=== PATIENT | female | born 1990 ===

== ENCOUNTER 2017-11-15 01:35 | Emergency (ER) | payer SELFPAY ==
[2017-11-15 01:40] VITALS: BMI 32.9
[2017-11-15] MEDS ORDERED: Sodium Chloride 0.9% 1,000 ML IV ONE (01:40)
--- NOTE | 2017-11-15 01:40 | C.PDOC ---
History Of Present Illness Pt woke up eith severe midepigastric pain. Sharp stabbing, non radiating pain. No f/c/n/v. No trauma or urinary symptoms Time Seen by Provider: 11/15/17 01:39 History Per: Patient, Family History/Exam Limitations: no limitations Onset/Duration Of Symptoms: Hrs Current Symptoms Are (Timing): Still Present Context: Other Severity: Severe Pain Scale Rating Of: 8 Location Of Pain/Discomfort: Epigastric Radiation Of Pain To:: None Quality Of Discomfort: Sharp, "Pain" Associated Symptoms: denies: Fever, Chills, Nausea Exacerbating Factors: None Alleviating Factors: None Last Bowel Movement: Yesterday Recent travel outside of the [place]: No Additional History Per: Family Abnormal Vaginal Bleeding: No Past Medical History Reviewed: Historical Data, Nursing Documentation, Vital Signs Vital Signs: Last Vital Signs Temp 97.9 F 11/15/17 01:55 Pulse 65 11/15/17 04:39 Resp 18 11/15/17 04:39 BP 114/78 11/15/17 04:39 Pulse Ox 98 11/15/17 04:39 Surgical History: - [facility] Procedures EXTRACTION OF POC, LOW CERVICAL, OPEN APPROACH (07/28/16) INTRODUCE OF OTH THERAP SUBST INTO FEM REPROD, VIA OPENING (07/28/16) Family History: States: No Known Family Hx - Social History Hx Alcohol Use: Yes Hx Substance Use: No - Immunization History Hx Tetanus Toxoid Vaccination: No Hx Influenza Vaccination: No Hx Pneumococcal Vaccination: No Review Of Systems Constitutional: Negative for: Fever, Chills Eyes: Negative for: Vision Change ENT: Negative for: Throat Pain Cardiovascular: Negative for: Chest Pain Respiratory: Negative for: Shortness of Breath Gastrointestinal: Positive for: Abdominal Pain. Negative for: Nausea, Vomiting Genitourinary: Negative for: Dysuria Musculoskeletal: Negative for: Back Pain Skin: Negative for: Rash Neurological: Negative for: Weakness Psych: Negative for: Anxiety Physical Exam - Physical Exam Appears: In Acute Distress Skin: Warm, Dry Head: Normacephalic Eye(s): bilateral: Normal Inspection Nose: Normal Oral Mucosa: Moist Neck: Supple Chest: Symmetrical Cardiovascular: Rhythm Regular Respiratory: No Rales, No Rhonchi, No Wheezing Gastrointestinal/Abdominal: Soft, Tenderness (MID EPIGASTRIC), Distention, Guarding (voluntary) Back: Normal Inspection, No CVA Tenderness Extremity: Normal ROM Extremity: Bilateral: Atraumatic Neurological/Psych: Oriented x3 Gait: Steady ED Course And Treatment - Laboratory Results Result Diagrams: 11/15/17 01:57 11/15/17 01:57 Pulse Ox Interpretation: Normal Disposition Counseled Patient/Family Regarding: Studies Performed, Diagnosis - Disposition Disposition Time: 01:40 Condition: FAIR - Clinical Impression Clinical Impression: Abdominal pain, Cholecystitis Physician Patient Turnover Patient Signed Over To: Jesus Martinez Handoff Comments: pending US, re-eval and dispositioni
[2017-11-15] MEDS ORDERED: Morphine 4 MG/ML VIAL ONE (01:46)
[2017-11-15] MEDS ORDERED: Sodium Chloride 0.9% 1,000 ML ONE (01:47)
[2017-11-15 02:01] LABS: BASO # 0.1 K/uL (0.0-0.2); BASO % 0.5 % (0.0-2.0); EOS # 0.2 K/uL (0.0-0.7); EOS % 1.4 % (0.0-4.0); HEMOGLOBIN 13.4 g/dL (11.0-16.0); LYMPH # 4.3 K/uL (1.0-4.3); LYMPH % 38.9 % (20.0-40.0); MEAN CELL VOLUME 82.5 fL (81.0-99.0); MEAN CORPUSCULAR HEMOGLOBIN 27.4 pg (27.0-31.0); MEAN CORPUSCULAR HGB CONC 33.2 g/dL (33.0-37.0); MEAN PLATELET VOLUME 8.2 fL (7.2-11.7); MONO # 0.8 K/uL (0.0-0.8); MONO % 7.3 % (0.0-10.0); NEUT # 5.7 K/uL (1.8-7.0); NEUT % 51.9 % (50.0-75.0); RBC 4.88 Mil/uL (3.80-5.20); RED CELL DISTRIBUTION WIDTH 13.5 % (11.5-14.5)
[2017-11-15 02:08] LABS: PROTHROMBIN TIME 11.7 SECONDS (9.7-12.2)
[2017-11-15 02:19] LABS: ALB/GLOB RATIO 1.2 (1.0-2.1); ALBUMIN 4.2 g/dL (3.5-5.0); ALT/SGPT 24 U/L (9-52); AST/SGOT 24 U/L (14-36); BLOOD UREA NITROGEN 12 mg/dL (7-17); CALCIUM 9.1 mg/dl (8.6-10.4); GFR AFRICAN-AMERICAN > 60; GFR NON-AFRICAN AMERICAN > 60; LIPASE 81 U/L (23-300)
[2017-11-15 02:51] LABS: HCG,QUALITATIVE URINE NEGATIVE (NEGATIVE)
[2017-11-15 03:22] LABS: URINE BILIRUBIN NEGATIVE (NEGATIVE); URINE BLOOD NEGATIVE (NEGATIVE); URINE CLARITY Hazy (Clear); URINE COLOR YELLOW (YELLOW); URINE GLUCOSE (UA) NEGATIVE (Normal); URINE PROTEIN NEGATIVE (NEGATIVE)
[2017-11-15 03:23] LABS: SQUAMOUS EPITHIAL 5 /hpf (0-5); URINE BACTERIA RARE (<OCC); URINE LEUKOCYTE ESTERASE 1+ Leu/uL (Negative)
[2017-11-15] MEDS ORDERED: Iodixanol 320 MG/ML 100 ML BOTTLE IV ONE (03:36)
[2017-11-15] MEDS ORDERED: Potassium Chloride 10 mEq ER Tab PO STA (04:51)
--- NOTE | 2017-11-15 04:55 | CT ---
EXAM: CT Abdomen and Pelvis With Intravenous Contrast CLINICAL HISTORY: 27 years old, female; Pain; Abdominal pain and other: Mid epigastric pain TECHNIQUE: Axial computed tomography images of the abdomen and pelvis with intravenous contrast. All CT scans at this facility use one or more dose reduction techniques, viz.: automated exposure control; ma/kV adjustment per patient size (including targeted exams where dose is matched to indication; i.e. head); or iterative reconstruction technique. Coronal and sagittal reformatted images were created and reviewed. CONTRAST: 100 mL of [id number] administered intravenously. COMPARISON: No relevant prior studies available. FINDINGS: Lung bases: Minimal atelectasis. ABDOMEN: Liver: Unremarkable. No mass. Gallbladder and bile ducts: Gallstones. Borderline prominence of common bile duct. Pancreas: No ductal dilation. No mass. Spleen: No splenomegaly. Adrenals: No mass. Kidneys and ureters: No mass. No hydronephrosis. Stomach and bowel: No definite mural thickening. No obstruction. PELVIS: Appendix: Normal caliber. No inflammation. Bladder: Unremarkable. Reproductive: Unremarkable as visualized. ABDOMEN and PELVIS: Intraperitoneal space: No significant fluid collection. No free air. Bones/joints: No acute fracture. Soft tissues: Tiny umbilical hernia containing fat. Vasculature: Unremarkable. No aneurysm. Lymph nodes: No pathologically enlarged lymph nodes. IMPRESSION: 1. Cholelithiasis with borderline ductal dilatation. Suggest ultrasound. 2. Incidental/non-acute findings are described above.
[2017-11-15] MEDS ORDERED: Potassium Chloride 20 mEq ER Tab PO ONE (04:58)
[2017-11-15 06:34] VITALS: O2SAT 99
--- NOTE | 2017-11-15 08:42 | US ---
HISTORY: cholecystitis, pain COMPARISON: None. TECHNIQUE: Grayscale imaging was performed. FINDINGS: LIVER: Measures 15.4 cm in length. There is diffuse increased echogenicity of the liver parenchyma with coarse echotexture. No mass. No intrahepatic bile duct dilatation. GALLBLADDER: The gallbladder is probably contracted and packed with multiple gallstones. No wall thickening or pericholecystic fluid. The sonographic Flor's sign is negative. COMMON BILE DUCT: Measures 7.0 mm. No stones. Diffuse dilatation dilatation. PANCREAS: Unremarkable as visualized. No mass. No ductal dilatation. RIGHT KIDNEY: Measures 10.7 cm in length. Normal echogenicity. No calculus, mass, or hydronephrosis. AORTA: No aneurysmal dilatation. IVC: Unremarkable. OTHER FINDINGS: None . IMPRESSION: 1. Suspect contracted gallbladder packed with gallstones. No sonographic evidence for acute cholecystitis. Mild diffuse dilatation of the common bile duct without evidence for choledocholithiasis. 2. Diffuse increased echogenicity in the liver may reflect hepatic steatosis however parenchymal infectious/ inflammatory etiologies cannot be entirely excluded. Clinical and laboratory correlation is advised.
[2017-11-15 08:59] VITALS: BP 98/65; PULSE 60; RESP 20; TEMP 97.8
== END 2017-11-15 09:10 | disposition home or self-care (01) ==
LOC: C.ER 01:35
DX: K80.50 Calculus of bile duct without cholangitis or cholecystitis without obstruction (principal); R10.13 Epigastric pain; E87.6 Hypokalemia
CPT/HCPCS: 74177; 76705; 80053; 81001; 83690; 84703; 85025; 85610; 85730; 96374; 96375; 99285; J2270; J2405; J7040; Q9967